=== PATIENT | female | born 1990 | race Asian ===

== ENCOUNTER 2017-05-13 13:56 | Emergency (ER) | payer BC ==
[~2017-05-13] VITALS: Ht 175.3 cm; Wt 116.4 kg
[~2017-05-13 13:56] MED LIST: NO HOME MEDICATIONS
[2017-05-13 13:58] VITALS: TEMP 98.2
[2017-05-13] MEDS ORDERED: ADDERALL15 MG PO (14:01)
[2017-05-13] MEDS ORDERED: NEXPLANON68 MG ID (14:15)
[2017-05-13 16:51] LABS: TROPONIN-I < 0.012 ng/mL (0.000-0.034)
[2017-05-13 17:05] VITALS: BP 124/74; PULSE 70
== END 2017-05-13 17:06 | disposition home or self-care (01) ==
LOC: COL.ER 13:56
PROVIDERS: Nurse Practitioner
DX: R07.89 Other chest pain (principal)
CPT/HCPCS: Q9967

== ENCOUNTER 2021-08-12 10:09 | Day surgery (SDC) | payer BC ==
[2021-08-12] VITALS (7 sets, daily range): BP systolic 109–144; BP diastolic 37–88; PULSE 51–74; TEMP 98.3–98.4
[~2021-08-12] VITALS: Ht 175.3 cm; Wt 115.6 kg
[~2021-08-12 10:09] MED LIST changes: +ADDERALL15 MG PO; +NEXPLANON68 MG ID
[2021-08-12] MEDS ORDERED: VYVANSE70 MG PO (10:55)
[2021-08-12] MEDS ORDERED: TYLENOL 500MG500 MG PO (10:56)
[2021-08-12] MEDS ORDERED: MACROBID 1100 MG/CAP PO (10:56)
[2021-08-12] MEDS ORDERED: MOTRIN 800800 MG/TAB PO (12:07)
[2021-08-12] MEDS ORDERED: PERCOCET 325 MG1 TA2 PO (12:08)
--- NOTE | 2021-08-12 20:34 | NUR ---
PATIENT ALERT AND ORIENTED ON ROOM ENTRY. AMBULATED WITH STANDBY ASSIST IN HALLWAY. TOLBERT TO DD WITH CLEAR YELLOW URINE OUTPUT. C/O MILD GAS PAIN BUT THAT THIS IS RESOLVING SINCE RECEIVING MEDS EARLIER. HS MEDS PER EMAR. X3 ABD LAPS WITH GLUE CDI AND OPEN TO AIR. X1 LAP SITE HAD MINIMAL DRAINAGE NOTED, BANDAID APPLIED. BANDAID ALSO NOTED TO L UPPER ARM WHERE NEXPLANON WAS REMOVED. SCDS IN PLACE, DENIES ADDITIONAL NEEDS.
[2021-08-13 03:40] VITALS: BP 142/73; PULSE 56; TEMP 98.2
--- NOTE | 2021-08-13 05:06 | NUR ---
ORDER TO DC TOLBERT THIS AM. DISCUSSED PROCEDURE WITH PATIENT. 10 MLS OF FLUID REMOVED FROM BALLOON. CATHETER DISCONTINUED. BALLOON INTACT. PATIENT TOLERATED PROCEDURE WELL.
[2021-08-13 07:31] VITALS: BP 126/69; PULSE 55; TEMP 98.1
--- NOTE | 2021-08-13 10:36 | NUR ---
DISCHARGE INSTRUCTIONS PROVIDED. PATIENT EDUCATION GIVEN. FOLLOW UP APPOINTMENT DISCUSSED. IV DC'D. PATIENT DENIES ANY QUESTIONS OR CONCERNS. PATIENT ESCORTED OUT VIA WHEELCHAIR.
== END 2021-08-13 10:40 | disposition home or self-care (01) ==
LOC: SDCO 10:09 → SURG 14:45 → SDCO 08-13 10:40
DX: D25.1 Intramural leiomyoma of uterus (principal); D25.2 Subserosal leiomyoma of uterus; E66.9 Obesity, unspecified; G89.29 Other chronic pain
CPT/HCPCS: OP; A4314; J0690; J1100; J1170; J2405; J2704; J2710; J3010; J7120